=== PATIENT | male | born 1955 | race Two or more races ===

== ENCOUNTER → 2025-09-06 | Outpatient (CLI) | payer MEDICARE, SELFPAY ==
--- NOTE | 2025-09-06 15:04 | XR_ITS ---
EXAMINATION: Bilateral Ipinnia single view TECHNIQUE: AP bilateral knees single view standing Date and time: September 06, 2025, 1513 hours INDICATIONS: Bilateral knee pain several years. FINDINGS: Prominent osteopenia. Severe narrowing medial joint space left knee with significant osteoarthritis lateral joint space left knee Moderate narrowing lateral joint space right knee No fractures IMPRESSION: Severe narrowing medial joint space left knee with significant osteoarthritis lateral joint space left knee
== END | disposition home or self-care (01) ==
PROVIDERS: Referring Provider Orthopaedic Surgery; Visit Provider Orthopaedic Surgery
DX: M17.12 Unilateral primary osteoarthritis, left knee (principal); M25.862 Other specified joint disorders, left knee
CPT/HCPCS: 73565